=== PATIENT | male | born 1945 | race Caucasian/White ===

== ENCOUNTER 2018-03-13 08:13 | Outpatient (CLI) | payer MEDICARE ==
--- NOTE | 2018-03-13 12:08 | MRI ---
MRI THORACIC SPINE NONCONTRAST: 03/13/2018 HISTORY: A 72-year-old male with, M48.04, thoracic spinal canal stenosis. Mid back pain. COMPARISON: None. FINDINGS: At C7-T1, the sagittal images demonstrate what appears to be a central disk herniation indenting the ventral aspect of the spinal cord. There is also what may be ligamentum flavum thickening and facet hypertrophy on the left side, contributing to central spinal canal stenosis and high-grade left neura l foraminal stenosis. This was not covered on the axial images, and evaluation is incomplete. The r est of this report pertains to the thoracic spine only: The vertebral body heights are maintained. There are multifocal patchy signal abnormalities at vario us locations in the mid and lower thoracic spine. 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 There are levels of modic type II marrow edema at several levels, especiall y T5-T6 and T10-T11, and to a lesser degree, T7-T8, T8-T9, and T9-T10. There is mild disk space narr owing at multiple levels. There are small disk-osteophyte complexes encroaching upon the anterior as pect of the spinal canal, at multiple levels. They do not cause high-grade central spinal canal sten osis. There is ligamentum flavum thickening encroaching upon the posterior aspect of the spinal abena l, at multiple levels. Overall, there is mild-moderate central spinal canal stenosis at T9-T10 due t o these factors. No significant central stenosis at any other level caudal to T1. There is mild to m oderate neural foraminal stenosis bilaterally at T8-T9 and on the left at T7-T8. The thoracic spinal cord is normal in size and signal. There is no syrinx. No major pathology of the perivertebral spac es. IMPRESSION: 1. At C7-T1, at the cervicothoracic junction, there is central spinal canal stenosis and bilateral n eural foraminal stenosis, left greater than right, with facet osteoarthrosis and degenerative disk di sease, and at least mild cord impingement. Recommend further evaluation with dedicated MRI of the ce rvical spine, noncontrast. 2. Multilevel thoracic mild to moderate spondylosis. 3. Mild-moderate central spinal canal stenosis at T9-10. 4. No central spinal canal stenosis at any other level in the thoracic spine. POS: M[facility]UEL
== END 2018-03-13 08:14 | disposition home or self-care (01) ==
LOC: BICMRI 08:13
PROVIDERS: ATTEND Anesthesiology Pain Medicine
DX: M48.061 Spinal stenosis, lumbar region without neurogenic claudication (principal); M50.33 Other cervical disc degeneration, cervicothoracic region; M48.03 Spinal stenosis, cervicothoracic region; M48.04 Spinal stenosis, thoracic region; M47.814 Spondylosis without myelopathy or radiculopathy, thoracic region
CPT/HCPCS: 72146

== ENCOUNTER 2018-06-14 10:33 | Outpatient (CLI) | payer MEDICARE ==
--- NOTE | 2018-06-14 10:51 | RAD ---
XR Chest Pa Lat @ [facility] HISTORY: Dyspnea COMPARISON: None FINDINGS: There are changes of median sternotomy. The heart size is normal. There is blunting of the costophrenic angles. Small pleural effusions cannot be excluded. No lobar consolidation or pneumothoraces are seen. There are mild degenerative changes in the spine.
== END 2018-06-14 10:34 | disposition home or self-care (01) ==
LOC: RAD 10:33
PROVIDERS: ATTEND Internal Medicine
DX: R06.00 Dyspnea, unspecified (principal)
CPT/HCPCS: 71046

== ENCOUNTER 2018-06-23 13:24 | Emergency (ER) | payer MEDICARE ==
[~2018-06-23 13:24] MED LIST: ISOVUE-370 76%-LOCM 1 ML ONE
[2018-06-23 13:50] LABS: #Eosinphils 0.8 thou/uL (0.0-0.7); #Lymphocytes 1.8 thou/uL (1.20-3.40); #Monocytes 1.6 thou/uL (0.11-0.59); #Neutrophils 7.9 thou/uL (1.40-6.50); %Basophils 0.2 % (0.0-1.0); %Eosinophils 6.8 % (0.0-10.0); %Lymphocytes 14.7 % (21.0-51.0); %Monocytes 12.8 % (0.0-10.0); %Neutrophils 65.6 % (42.0-75.0); Hemoglobin 11.8 g/dL (14.0-18.0); Mean Corpuscular Hemoglobin 28.6 pg (27.0-31.0); Mean Corpuscular Volume 92.2 fL (78.0-98.0); Mean Platelet Volume 7.9 fL (7.4-10.4); Platelet Count 348 thou/uL (130-400); RBC Distribution Width 15.6 % (11.5-14.5); Red Blood Cell (RBC) Count 4.11 mill/uL (4.70-6.10); White Blood Cell (WBC) Count 12.1 thou/uL (4.8-10.8)
--- NOTE | 2018-06-23 13:59 | RAD ---
Portable chest: HISTORY: Dyspnea COMPARISON: 06/14/2018 FINDINGS: Lung padilla are clear. Heart and mediastinum appear unremarkable. Vascularity is normal. R ight CP angle is blunted suggesting small effusion, unchanged from prior exam. Postop sternotomy change again noted. Visualized osseous structures unremarkable. IMPRESSION:Stable chest findings
[2018-06-23 14:12] LABS: ALT (SGPT) 36 U/L (8-55); AST (SGOT) 18 U/L (5-34); Albumin 3.5 g/dL (3.4-4.8); Alkaline Phosphatase 90 U/L (40-150); Anion Gap 12 mmol/L (10-20); BUN (Urea Nitrogen) 17 mg/dL (8.4-25.7); Bilirubin, Total 0.4 mg/dL (0.2-1.2); Calc. Creatinine Clearance 0 mL/min (70-130); Carbon Dioxide 26 mmol/L (23-31); Chloride 101 mmol/L (98-107); Estimated GFR-MDRD 77; Globulin 3.4 g/dL (2.4-3.5); Glucose 97 mg/dL (83-110); Potassium 4.4 mmol/L (3.5-5.1); Protein, Total 6.9 g/dL (5.8-8.1); Sodium 135 mmol/L (136-145)
--- NOTE | 2018-06-23 15:45 | CT ---
CTA CHEST WITH CONTRAST: Multiple axial tomograms were obtained through the chest following pulmonary angio protocol. Multipl ruthie reconstruction and 3D postprocessing performed. INDICATION: Dyspnea. Shortness of breath. FINDINGS: The pulmonary arteries show adequate opacification. There is no evidence of pulmonary embolus. The lung padilla show no focal infiltrate. There is a small right pleural effusion and mild right basilar atelectasis. Mediastinum unremarkable. Thoracic aorta is unremarkable with mild atherosclerotic ch liz. Nonspecific mediastinal lymph nodes. IMPRESSION: 1. No evidence of pulmonary embolus. 2. Small right pleural effusion and mild right basilar atelectasis. POS: OFF
== END 2018-06-23 16:30 | disposition home or self-care (01) ==
LOC: ERS 13:24
DX: R06.02 Shortness of breath (principal); R10.9 Unspecified abdominal pain; I10 Essential (primary) hypertension; E78.5 Hyperlipidemia, unspecified; F32.9 Major depressive disorder, single episode, unspecified; Z79.82 Long term (current) use of aspirin; Z79.899 Other long term (current) drug therapy; W19.XXXA Unspecified fall, initial encounter
CPT/HCPCS: 71045; 71275; 80053; 82550; 83880; 84484; 85025; 93005; 94760; 96360; Q9966

== ENCOUNTER 2018-08-07 13:14 | Outpatient (CLI) | payer MEDICARE | END 2018-08-07 13:15 | disposition home or self-care (01) | LOC: CP 13:14 | PROVIDERS: ATTEND Internal Medicine | DX: R05 Cough (principal); J20.9 Acute bronchitis, unspecified | CPT/HCPCS: 94060; 94727; 94729 ==

== ENCOUNTER 2018-11-14 10:22 | Outpatient (CLI) | payer MEDICARE ==
--- NOTE | 2018-11-14 12:07 | RAD ---
PA AND LATERAL CHEST: HISTORY: Dyspnea. COMPARISON: 06/14/2018 FINDINGS: heart size is within normal limits. Postop sternotomy changes are seen. The lungs appear clear of any infiltrative process. The blunting to the right costophrenic angle seen on the 06/14/2018 study is n o longer present. IMPRESSION: No active intrathoracic disease. POS: [facility]
== END 2018-11-14 10:23 | disposition home or self-care (01) ==
LOC: RAD 10:22
PROVIDERS: ATTEND Internal Medicine
DX: R06.00 Dyspnea, unspecified (principal)
CPT/HCPCS: 71046

== ENCOUNTER 2020-11-22 08:30 | Outpatient (CLI) | payer MEDICARE | END 2020-11-22 08:31 | disposition home or self-care (01) | LOC: RAD 08:30 | PROVIDERS: ATTEND Internal Medicine Critical Care Medicine | DX: R06.00 Dyspnea, unspecified (principal) | CPT/HCPCS: 71046 ==

== ENCOUNTER 2021-03-14 07:33 | Outpatient (CLI) | payer MEDICARE | END 2021-03-14 07:34 | disposition home or self-care (01) | LOC: CT 07:33 | PROVIDERS: ATTEND Nurse Practitioner Family | DX: M47.26 Other spondylosis with radiculopathy, lumbar region (principal); I77.811 Abdominal aortic ectasia | CPT/HCPCS: 72131 ==

== ENCOUNTER 2021-10-21 13:57 | Outpatient (CLI) | payer MEDICARE ==
[~2021-10-21 13:57] MED LIST changes: -ISOVUE-370 76%-LOCM 1 ML ONE; +Iopamidol 370 76% 100 ML VIAL ONE
== END 2021-10-21 13:58 | disposition home or self-care (01) ==
LOC: BICCT 13:57
PROVIDERS: ATTEND Family Medicine Sports Medicine
DX: E27.9 Disorder of adrenal gland, unspecified (principal); I71.4 Abdominal aortic aneurysm, without rupture; N28.89 Other specified disorders of kidney and ureter
CPT/HCPCS: 74170; 82565; Q9967